=== PATIENT | male | born 1990 | race Caucasian/White ===

== ENCOUNTER 2018-11-11 22:50 | Emergency (ER) | payer OTHER ==
[~2018-11-11] VITALS: Ht 182.9 cm; Wt 68.0 kg
[2018-11-12 01:34] VITALS: BP 120/79
== END 2018-11-12 01:35 | disposition home or self-care (01) ==
LOC: M.ERS 22:50
DX: L98.8 Other specified disorders of the skin and subcutaneous tissue (principal)

== ENCOUNTER 2020-08-07 22:38 | Emergency (ER) | payer OTHER ==
[~2020-08-07] VITALS: Ht 172.7 cm; Wt 74.8 kg
[2020-08-07 23:50] LABS: INFLUENZA A ANTIGEN Negative (Negative); INFLUENZA B ANTIGEN Negative (Negative)
[2020-08-08] MEDS ORDERED: Magic Mouthwash SWISH&SPIT (00:09)
[2020-08-08] MEDS ORDERED: PREDNISONE 20 M20 M1 PO (00:09)
[2020-08-08 00:13] VITALS: BP 126/72
== END 2020-08-08 00:13 | disposition home or self-care (01) ==
LOC: M.ERS 22:38
PROVIDERS: Personal Emergency Response Attendant
DX: J02.8 Acute pharyngitis due to other specified organisms (principal); B97.89 Other viral agents as the cause of diseases classified elsewhere; Z20.822 Contact with and (suspected) exposure to COVID-19